=== PATIENT | female | born 1950 | race Caucasian/White ===

== ENCOUNTER 2017-02-10 08:47 | Inpatient (IN) | payer MEDICARE ==
[2017-02-07 09:31] LABS: PATH.CAST-FLAG NOT PRESENT; SPERM-FLAG NOT PRESENT; SRC-FLAG NOT PRESENT; XTAL-FLAG NOT PRESENT; YLC-FLAG NOT PRESENT
[2017-02-07 10:29] LABS: HIV 1&2 ANTIBODY SCREEN Nonreactive (Nonreactive); HIV-1 p24 ANTIGEN Nonreactive (Nonreactive)
[~2017-02-10] VITALS: Ht 167.6 cm; Wt 110.5 kg
[~2017-02-10 08:47] MED LIST: BACITRACIN 50,000 UNIT ONE; CARI350T PO; CITA40TA12 PO; DOCU-30 PO; DULO60CA7 PO; EPINEPHRINE 1 MG/ML, 1ML ONE; HYDR-3240 PO; KETOROLAC 60 MG/2 ML ONE; OXYC5TAB2 PO; ROPIvacaine/PF 0.2%, 20 ML ONE; SODIUM CHLORIDE 0.9% 50 ML ONE; TRANEXAMIC ACID 100 MG/ML, 10ML ONE; VANCOMYCIN 1,000 MG ONE; morphine SULFATE/PF 1 MG/ML, 10ML ONE
[2017-02-10] MEDS ORDERED: VANCOMYCIN PMX 1GM/200ML 200 ML IV STA (10:03)
[2017-02-10] MEDS ORDERED: LACTATED RINGERS 1,000 ML IV SCH (10:22)
[2017-02-10 10:51] VITALS: BP 122/80
[2017-02-10] MEDS ORDERED: FENTANYL PF 100 MCG/2ML ONE (11:43)
[2017-02-10] MEDS ORDERED: MIDAZOLAM 1 MG/ML, 2ML ONE (11:43)
[2017-02-10] MEDS ORDERED: CEFAZOLIN 1,000 MG ONE (12:50)
[2017-02-10] MEDS ORDERED: ONDANSETRON 2MG/ML, 2ML ONE (12:50)
[2017-02-10] MEDS ORDERED: PROPOFOL 10 MG/ML, 20ML ONE (12:50)
[2017-02-10] MEDS ORDERED: ZOLPIDEM 5MG TABLET PO PRN (13:30)
[2017-02-10] MEDS ORDERED: ACETAMINOPHEN 325 MG TABLET PO PRN (13:30)
[2017-02-10] MEDS ORDERED: DIPHENHYDRAMINE 50 MG CAPSULE PO PRN (13:30)
[2017-02-10] MEDS ORDERED: ONDANSETRON 2MG/ML, 2ML IVPush PRN ×2 (13:30→14:00)
[2017-02-10] MEDS ORDERED: TRANEXAMIC ACID 100 MG/ML, 10ML IVPB ONE (13:30)
[2017-02-10] MEDS ORDERED: OXYcodone 5 MG/5 ML ORAL.SOL UDC PO PRN (14:00)
[2017-02-10] MEDS ORDERED: MEPERIDINE/PF 25MG/0.5ML IVPush PRN (14:00)
[2017-02-10] MEDS ORDERED: hydrALAzine 20 MG/ML, 1ML IV PRN (14:00)
[2017-02-10] MEDS ORDERED: PROMETHAZINE 25 MG/ML, 1ML IV PRN (14:00)
[2017-02-10] MEDS ORDERED: HYDROmorphone 1 MG/ML, 1ML IV PRN (14:00)
[2017-02-10] MEDS ORDERED: FENTANYL PF 100 MCG/2ML IV PRN (14:00)
[2017-02-10] MEDS ORDERED: LABETALOL 5MG/ML, 20ML IV PRN (14:00)
[2017-02-10] MEDS ORDERED: MIDAZOLAM 1 MG/ML, 2ML IV PRN (14:00)
[2017-02-10] MEDS ORDERED: OXYcodone 5 MG/5 ML ORAL.SOL UDC ONE (15:08)
[2017-02-10] MEDS ORDERED: TRANEXAMIC ACID 1,000 MG in SODIUM CHLORIDE 0.9% 100 ML IV ONE ×2 (16:30→18:30)
[2017-02-10] MEDS: OXYcodone/APAP 7.5/325MG TABLET PO PRN ×2 (17:18→20:54)
[2017-02-10] MEDS: D5%-0.45% NACL 1,000 ML IV SCH (17:19)
[2017-02-10] MEDS ORDERED: TRANEXAMIC ACID 100 MG/ML, 10ML IV ONE (18:30)
[2017-02-10] MEDS: morphine SULFATE 10 MG/ML, 1ML IVPush PRN ×2 (18:52→19:59)
[2017-02-10 19:10] VITALS: BP 112/75
[2017-02-10] MEDS: LORazepam 2 MG/ML, 1ML IVPush PRN (20:00)
[2017-02-10] MEDS: CEFAZOLIN PMX 1GM/50ML 50 ML IVPB SCH (20:40)
[2017-02-10 23:53] VITALS: BP 108/76
[2017-02-11] MEDS: D5%-0.45% NACL 1,000 ML IV SCH ×4 (01:05→13:00)
[2017-02-11] MEDS: OXYcodone/APAP 7.5/325MG TABLET PO PRN ×5 (01:06→16:59)
[2017-02-11] MEDS: morphine SULFATE 10 MG/ML, 1ML IVPush PRN ×3 (01:21→11:07)
[2017-02-11] MEDS: LORazepam 2 MG/ML, 1ML IVPush PRN (02:05)
[2017-02-11 03:07] VITALS: BP 97/65
[2017-02-11] MEDS: CEFAZOLIN PMX 1GM/50ML 50 ML IVPB SCH ×2 (05:07→13:05)
[2017-02-11 07:03] VITALS: BP 93/60
[2017-02-11] MEDS ORDERED: DULOXETINE 30 MG CAPSULE.DR PO SCH (09:00)
[2017-02-11] MEDS ORDERED: VANCOMYCIN PMX 1GM/200ML 200 ML IVPB ONE (10:30)
[2017-02-11 13:19] VITALS: BP 129/76
[2017-02-11] MEDS ORDERED: ASPIRIN 325 MG TABLET EC PO SCH (17:00)
[2017-02-11 17:15] VITALS: BP 143/81
[2017-02-11] MEDS ORDERED: DOCUSATE 100 MG CAPSULE PO SCH (21:00)
== END 2017-02-11 17:27 | disposition home or self-care (01) | DRG 470 ==
LOC: ORIP 09:45 → 4NOR 16:05
PROVIDERS: ADMIT Orthopaedic Surgery; ATTEND Orthopaedic Surgery
PROC: 0SRC0J9 Replacement of Right Knee Joint with Synthetic Substitute, Cemented, Open Approach (ICD-10-PCS; principal; 2017-02-10 12:30)
DX: M17.11 Unilateral primary osteoarthritis, right knee (principal); F41.9 Anxiety disorder, unspecified; E66.01 Morbid (severe) obesity due to excess calories; Z88.5 Allergy status to narcotic agent; Z87.891 Personal history of nicotine dependence; Z68.39 Body mass index [BMI] 39.0-39.9, adult
CPT/HCPCS: 36415; 81001; 85018; 85025; 86703; 87081; 87086; 87899; 93005; C1713; J0171; J0690; J1885; J2250; J2274; J2405; J2704; J2795; J3010; J3370; C1776; G0435; J2060; J2270; J7120

== ENCOUNTER 2017-02-17 17:34 | Emergency (ER) | payer MEDICARE ==
[~2017-02-17] VITALS: Ht 167.6 cm; Wt 104.5 kg
[~2017-02-17 17:34] MED LIST changes: -BACITRACIN 50,000 UNIT ONE; -EPINEPHRINE 1 MG/ML, 1ML ONE; -KETOROLAC 60 MG/2 ML ONE; -ROPIvacaine/PF 0.2%, 20 ML ONE; -SODIUM CHLORIDE 0.9% 50 ML ONE; -TRANEXAMIC ACID 100 MG/ML, 10ML ONE; -VANCOMYCIN 1,000 MG ONE; -morphine SULFATE/PF 1 MG/ML, 10ML ONE
[2017-02-17] MEDS ORDERED: SODIUM CHLORIDE FLUSH 10ML SYR IVF ONE (18:00)
[2017-02-17 18:31] LABS: BLOOD UREA NITROGEN 13 mg/dL (7-18)
[2017-02-17] MEDS ORDERED: HYDROmorphone 1 MG/ML, 1ML IM STA (19:16)
[2017-02-17] MEDS ORDERED: HYDROmorphone 1 MG/ML, 1ML ONE (19:18)
[2017-02-17 20:08] VITALS: BP 106/73
== END 2017-02-17 20:09 | disposition home or self-care (01) ==
LOC: ED 19:07
DX: M25.561 Pain in right knee (principal); L76.32 Postprocedural hematoma of skin and subcutaneous tissue following other procedure
CPT/HCPCS: 36415; 73564; 80048; 82040; 85025; 93971; 96372; 99285; J1170

== ENCOUNTER 2017-12-18 07:02 | Day surgery (SDC) | payer MEDICARE ==
[~2017-12-18] VITALS: Ht 167.6 cm; Wt 120.7 kg
[~2017-12-18 07:02] MED LIST changes: +BACL20TA PO; +DOCU-131 PO; -DOCU-30 PO; +GABA300C10 PO; +TRAZ100T15 PO
[2017-12-18] MEDS ORDERED: LACTATED RINGERS 1,000 ML IV SCH (07:52)
[2017-12-18 07:53] VITALS: BP 134/84
[2017-12-18] MEDS ORDERED: PROPOFOL 10 MG/ML, 20ML ONE (08:07)
[2017-12-18] MEDS ORDERED: NEOSTIGMINE 1 MG/ML, 10ML ONE (08:07)
[2017-12-18] MEDS ORDERED: CEFAZOLIN 1,000 MG ONE (08:07)
[2017-12-18] MEDS ORDERED: DEXAMETHASONE 4 MG/ML, 1ML ONE (08:07)
[2017-12-18] MEDS ORDERED: SUCCINYLCHOLINE 20 MG/ML, 10ML ONE (08:07)
[2017-12-18] MEDS ORDERED: ONDANSETRON 2MG/ML, 2ML ONE (08:07)
[2017-12-18] MEDS ORDERED: GLYCOPYRROLATE 0.2MG/1ML, 5ML ONE (08:07)
[2017-12-18] MEDS ORDERED: EPINEPHRINE 1 MG/ML, 1ML ONE (08:17)
[2017-12-18] MEDS ORDERED: BUPIVACAINE/PF 0.5% ONE (08:17)
[2017-12-18] MEDS ORDERED: FENTANYL PF 100 MCG/2ML ONE ×3 (08:23→11:08)
[2017-12-18] MEDS ORDERED: MIDAZOLAM 1 MG/ML, 2ML ONE (08:24)
[2017-12-18] MEDS ORDERED: SUGAMMADEX 200 MG/2 ML IVPush ONE (08:41)
[2017-12-18] MEDS ORDERED: ROCURONIUM 10 MG/ML,10ML ONE (09:00)
[2017-12-18] MEDS ORDERED: LIDOCAINE-MPF 2% ,5ML ONE (09:00)
[2017-12-18] MEDS ORDERED: KETOROLAC 30 MG/1 ML IV PRN ×2 (10:00)
[2017-12-18] MEDS ORDERED: MIDAZOLAM 1 MG/ML, 2ML IV PRN (10:00)
[2017-12-18] MEDS ORDERED: ACETAMINOPHEN 325 MG TABLET PO PRN ×2 (10:00→10:30)
[2017-12-18] MEDS ORDERED: MEPERIDINE/PF 25MG/0.5ML IVPush PRN (10:00)
[2017-12-18] MEDS ORDERED: hydrALAzine 20 MG/ML, 1ML IV PRN (10:00)
[2017-12-18] MEDS ORDERED: METOPROLOL 1 MG/ML, 5ML IV PRN (10:00)
[2017-12-18] MEDS ORDERED: LABETALOL 5MG/ML, 20ML IV PRN (10:00)
[2017-12-18] MEDS ORDERED: KETOROLAC 30 MG/1 ML IM PRN ×2 (10:00)
[2017-12-18] MEDS ORDERED: ACETAMINOPHEN 650 MG/20.3 ML UDC ONE (10:04)
[2017-12-18] MEDS ORDERED: OXYcodone 5 MG/5 ML ORAL.SOL UDC ONE (10:05)
[2017-12-18] MEDS: FENTANYL PF 100 MCG/2ML IV PRN ×2 (10:08→10:15)
[2017-12-18] MEDS ORDERED: HYDROmorphone 1 MG/ML, 1ML ONE (10:18)
[2017-12-18] MEDS: HYDROmorphone 1 MG/ML, 1ML IV PRN ×4 (10:22→11:02)
[2017-12-18] MEDS ORDERED: OXYcodone 5 MG/5 ML ORAL.SOL UDC PO PRN (10:30)
[2017-12-18] MEDS ORDERED: morphine SULFATE 10 MG/ML, 1ML IV PRN (10:30)
[2017-12-18] MEDS ORDERED: KETOROLAC 30 MG/1 ML ONE (11:08)
[2017-12-18] MEDS ORDERED: BUPIVACAINE/PF 0.5% INFIL ONE (12:23)
[2017-12-18] MEDS ORDERED: EPINEPHRINE 1 MG/ML, 1ML INFIL ONE (12:24)
== END 2017-12-18 12:45 ==
LOC: OUT 07:02
PROVIDERS: ATTEND Surgery
DX: M79.89 Other specified soft tissue disorders (principal); Z88.6 Allergy status to analgesic agent; Z88.1 Allergy status to other antibiotic agents; Z88.8 Allergy status to other drugs, medicaments and biological substances; F17.210 Nicotine dependence, cigarettes, uncomplicated; Z90.49 Acquired absence of other specified parts of digestive tract; Z98.890 Other specified postprocedural states
CPT/HCPCS: 27337; 88305; J0171; J0330; J0690; J1100; J1170; J1885; J2250; J2405; J2704; J2710; J3010; J3490; J7120

== ENCOUNTER 2018-01-23 15:44 | Emergency (ER) | payer MEDICARE ==
[~2018-01-23] VITALS: Ht 167.6 cm; Wt 119.4 kg
[2018-01-23 16:42] LABS: BASOPHILS # (AUTO) 0.04 x10^3/uL (0-0.1); BASOPHILS % (AUTO) 1 % (0-1); EOSINOPHILS # (AUTO) 0.08 x10^3/uL (0-0.4); EOSINOPHILS % (AUTO) 1 % (1-7); LYMPHOCYTES # (AUTO) 1.38 x10^3/uL (1-3.4); LYMPHOCYTES % (AUTO) 21 % (22-44); MD NO; MEAN CORPUSCULAR HEMOGLOBIN 32.9 pg (27.0-34.8); MEAN CORPUSCULAR HGB CONC 33.5 g/dL (32.4-35.8); MEAN CORPUSCULAR VOLUME 98.2 fL (80-100); MEAN PLATELET VOLUME 7.6 fL (7.4-10.4); MONOCYTES # (AUTO) 0.25 x10^3/uL (0.2-0.8); MONOCYTES % (AUTO) 4 % (2-9); NEUTROPHILS # (AUTO) 4.73 x10^3/uL (1.8-6.8); NEUTROPHILS % (AUTO) 73 % (42-75); PLATELET COUNT 155 x10^3/uL (130-400); RED BLOOD COUNT 4.04 x10^6/uL (3.82-5.3)
[2018-01-23 16:53] LABS: ANION GAP 5 mmol/L (5-15); CALCIUM 8.8 mg/dL (8.5-10.1); CHLORIDE 103 mmol/L (98-107); CREATININE 1.04 mg/dL (0.55-1.02)
[2018-01-23] MEDS ORDERED: GABA300C10 PO (16:55)
[2018-01-23 17:44] LABS: CULTURE INDICATED? YES; MICROSCOPIC INDICATED
[2018-01-23 18:08] VITALS: BP 124/74
== END 2018-01-23 18:34 | disposition home or self-care (01) ==
LOC: ED 18:00
DX: M13.0 Polyarthritis, unspecified (principal); N30.00 Acute cystitis without hematuria
CPT/HCPCS: 36415; 80048; 81001; 85025; 87077; 87086; 87186; 99284

== ENCOUNTER 2020-12-24 07:52 | Emergency (ER) | payer MEDICARE ==
[~2020-12-24] VITALS: Ht 167.6 cm; Wt 136.2 kg
[~2020-12-24 07:52] MED LIST changes: +BACL-19 PO; +CYMBALTA; +FENO160T PO; +HYDR-1067 PO; -HYDR-3240 PO; +LOVA10TA PO; +TRAZ-175 PO; -TRAZ100T15 PO
--- NOTE | 2020-12-24 07:55 | NUR ---
[facility] CALLED @ 48 PER NO NEURO PAGE @ THIS TIME
[2020-12-24 08:22] LABS: BASOPHILS % (AUTO) 1 % (0-1); EOSINOPHILS % (AUTO) 2 % (1-7); LYMPHOCYTES % (AUTO) 41 % (22-44); MEAN CORPUSCULAR HEMOGLOBIN 35.8 pg (27.0-34.8); MEAN PLATELET VOLUME 7.7 fL (7.4-10.4); MONOCYTES % (AUTO) 8 % (2-9); NEUTROPHILS % (AUTO) 47 % (42-75); PLATELET COUNT 165 x10^3/uL (130-400); RED BLOOD COUNT 4.16 x10^6/uL (3.82-5.3); RED CELL DISTRIBUTION WIDTH 12.3 % (9.6-15.2)
[2020-12-24 08:23] LABS: MD NO
--- NOTE | 2020-12-24 08:25 | NUR ---
PT BIB EMS FOR SLURRED SPEECH AND LEFT SIDE FACIAL DROOP. [facility] CALLED. PT WAS LAST SEEN NORMAL AT 1700 YESTERDAY BY HER . WENT TO WORK AND CAME HOME TO FIND HER ON THE GROUND BLOCKING THE DOORWAY TO THE HOUSE AND HER SPEECH WAS SLURRED. PER EMS "SHE WAS ABLE TO WALK ASSISTED TO [facility]". PT ADMITS TO DRINKING ALCOHOL THROUGHOUT THE NIGHT LAST NIGHT. LAST DRINK AT ABOUT 0300 THIS MORNING. EKG COMPLETE. PT CONNECTED TO ALL MONITORING EQUIPMENT. BLANKET PROVIDED
[2020-12-24] MEDS ORDERED: OMNIPAQUE 350 MG/ML, 75ML BOTTLE ONE (08:27)
[2020-12-24 08:33] LABS: INTERNATIONAL NORMALIZED RATIO 0.93 (0.93-1.1)
[2020-12-24 08:43] LABS: SALICYLATE LEVEL < 1.7 mg/dL (2.8-20.0)
--- NOTE | 2020-12-24 08:51 | NUR ---
UA SENT TO LAB
[2020-12-24 09:02] LABS: MICROSCOPIC AUTO
[2020-12-24 09:12] LABS: AMPHETAMINE SCREEN, URINE Negative (Negative); BARBITURATE SCREEN, URINE Negative (Negative); BENZODIAZEPINE SCREEN, URINE Negative (Negative); CANNABINOID SCREEN, URINE Negative (Negative); COCAINE SCREEN, URINE Negative (Negative); METHADONE SCREEN, URINE Negative (Negative); OPIATE SCREEN, URINE Negative (Negative)
[2020-12-24 10:18] LABS: ALBUMIN 3.6 g/dL (3.4-5.0); BILIRUBIN, DIRECT 0.1 mg/dL (0.1-0.2)
[2020-12-24 10:20] LABS: BILIRUBIN,INDIRECT 0.3 mg/dL (0.0-2.0); BILIRUBIN,TOTAL 0.4 mg/dL (0.2-1.0); TOTAL PROTEIN 7.4 g/dL (6.4-8.2)
--- NOTE | 2020-12-24 10:35 | NUR ---
RECIEVED REPORT FROM REBA ALVA. ASSUMING CARE AT THIS TIME. ALL RESULTS ARE BACK AT THIS TIME. CHART UP FOR RECHECK.
[2020-12-24 11:32] VITALS: BP 121/73
--- NOTE | 2020-12-24 11:33 | NUR ---
PT RESTING COMFORTABLY ON GURNEY. DOE. PT STATES SHE IS READY TO GO HOME.
== END 2020-12-24 12:51 | disposition home or self-care (01) ==
LOC: ED 08:08
DX: R00.0 Tachycardia, unspecified (principal); F10.139 Alcohol abuse with withdrawal, unspecified; Y90.0 Blood alcohol level of less than 20 mg/100 ml; Z87.891 Personal history of nicotine dependence; Z88.5 Allergy status to narcotic agent; Z86.73 Personal history of transient ischemic attack (TIA), and cerebral infarction without residual deficits
CPT/HCPCS: 70450; 70496; 70498; 80047; 80076; 80143; 80179; 80307; 80320; 81001; 82140; 82977; 85025; 85610; 85730; 87077; 87086; 87186; 93005; 99285; Q9967; G0480